=== PATIENT | male | born 1995 | race Two or more races ===

== ENCOUNTER 2017-06-07 13:09 | Emergency (ER) | payer OTHER ==
--- NOTE | 2017-06-07 13:43 | XRAY Preliminary Report ---
Exam: XR SHOULDER 3 VIEW RT IMPRESSION: 1. No acute osseous abnormalities. Normal alignment. [facility] SITE ID: [id number]
--- NOTE | 2017-06-07 13:45 | XRAY Report ---
EXAM: RIGHT SHOULDER RADIOGRAPHY EXAM DATE: 06/07/2017 01:38 PM. CLINICAL HISTORY: Fall. Right shoulder pain. COMPARISON: None. TECHNIQUE: 3 views. FINDINGS: Bones: Normal. No fracture or bone lesion. Joints: Normal alignment. No dislocation. Soft tissues: The visualized hemithorax is unremarkable. No soft tissue swelling. IMPRESSION: 1. No acute osseous abnormalities. Normal alignment. [facility] Referring Provider Line: [phone] SITE ID: [id number]
--- NOTE | 2017-06-07 14:26 | ED Physician Documentation ---
PD HPI UPPER EXT INJURY - Stated complaint Stated Complaint: R ARM INJ - Chief complaint Chief Complaint: Ext Problem - History obtained from History obtained from: Patient - History of Present Illness Location: Right, Shoulder, Arm Type of injury: Fall (from skateboard) Where injury occurred: Street Timing - onset: Yesterday Timing - details: Abrupt onset, Still present Worsened by: Moving (supination of forearm and also flexion at elbow.), Palpating Associated symptoms: No: Weakness, Numbness, Swelling Similar symptoms before: Has not had sx before Recently seen: Not recently seen Review of Systems Skin: denies: Abrasion (s), Laceration (s) Musculoskeletal: denies: Neck pain, Back pain Neurologic: denies: Focal weakness, Numbness, Headache, Head injury PD PAST MEDICAL HISTORY - Past Medical History Past Medical History: No - Past Surgical History Past Surgical History: No - Present Medications Home Medications: Ambulatory Orders Medication Instructions Recorded Confirmed Ibuprofen [Motrin] 600 mg PO TID #30 tab 06/07/17 - Allergies Allergies/Adverse Reactions: Allergies Allergy/AdvReac Type Severity Reaction Status Date / Time No Known Drug Allergies Allergy Verified 06/07/17 13:19 - Social History Does the pt smoke?: Yes Smoking Status: Current every day smoker Does the pt drink ETOH?: No Does the pt have substance abuse?: No - Immunizations Immunizations are current?: Yes PD ED PE NORMAL - Vitals Vital signs reviewed: Yes - General General: Alert and oriented X 3, No acute distress, Well developed/nourished - HEENT HEENT: Atraumatic - Neck Neck: Supple, no meningeal sign, No bony TTP - Back Back: No spinal TTP - Derm Derm: Normal color, Warm and dry - Extremities Extremities: No deformity, No tenderness to palpate, Other (right upper arm tender laterally about mid shaft in muscles. Has good movement at elbow against resistance with main pain being supination against resistance. Shoulder itself is not tender. ) Results - Vitals Vitals: Oxygen O2 Source Room air - Rads (name of study) shoulder Radiology: Prelim report reviewed (no fractures), EMP read contemporaneously PD MEDICAL DECISION MAKING - ED course Complexity details: considered differential (seems muscle strain of brachioradialis. Biceps and triceps seem okay. ), d/w patient Departure - Departure Disposition: 01 Home, Self Care Clinical Impression: Fall from skateboard, initial encounter Muscle strain, upper arm Qualifiers: Encounter type: initial encounter Laterality: right Qualified Code(s): S46.911A - Strain of unspecified muscle, fascia and tendon at shoulder and upper arm level, right arm, initial encounter Condition: Stable Record reviewed to determine appropriate education?: Yes Instructions: ED Strain Muscle Ext Follow-Up: KIM Shenshelia Paiz [Provider Group] Prescriptions: Ibuprofen [Motrin] 600 mg PO TID #30 tab Comments: Sling for the arm for the next 4-5 days. Gentle range of motion to it so does not get stiff. Ibuprofen 3 times a day. Add Tylenol if needed. Limited use of that arm for for 5 days. Follow-up with your primary care during that time. Forms: Activity restrictions Discharge Date/Time: 06/07/17 15:04
[2017-06-07] MEDS ORDERED: IBUPROFEN 600 MG TABLET PO STA (14:38)
[2017-06-07] MEDS ORDERED: ACETAMINOPHEN 325 MG TABLET PO STA (14:39)
[2017-06-07] MEDS ORDERED: ACETAMINOPHEN 325 MG TABLET PO ONE (14:49)
[2017-06-07] MEDS ORDERED: IBUPROFEN 600 MG TABLET PO ONE (14:49)
[2017-06-07 14:54] VITALS: BP 128/87
== END 2017-06-07 15:04 | disposition home or self-care (01) ==
LOC: ED 13:09
DX: S46.911A Strain of unspecified muscle, fascia and tendon at shoulder and upper arm level, right arm, initial encounter (principal); V00.131A Fall from skateboard, initial encounter; Y93.51 Activity, roller skating (inline) and skateboarding; Y92.830 Public park as the place of occurrence of the external cause; F17.200 Nicotine dependence, unspecified, uncomplicated
CPT/HCPCS: 73030; 99283; A9270

== ENCOUNTER 2018-07-06 15:08 | Emergency (ER) | payer OTHER ==
[2018-07-06 15:44] VITALS: BP 134/76
--- NOTE | 2018-07-06 15:51 | ED Physician Documentation ---
PD HPI LOWER EXT INJURY - Stated complaint Stated Complaint: RT ANKLE PX - Chief complaint Chief Complaint: Ext Problem - History obtained from History obtained from: Patient - History of Present Illness PD HPI LOW EXT INJURY LOCATION: Right, Ankle Type of injury: Twist Where injury occurred: Street Timing - onset: Last night Timing - duration: Hours Timing - details: Abrupt onset, Still present Improved by: Rest, Ice, Immobilization Worsened by: Moving, Palpating Associated symptoms: Swelling Contributing factors: No: Anticoagulated Similar symptoms before: Diagnosis (ankle sprain) Recently seen: Not recently seen - Additional information Additional information: 23-year-old who has rolled his right ankle previously was walking along the street last night when he rolled his ankle again. He has swelling and pain over the lateral aspect of his ankle and he is able to bear some weight. Review of Systems Constitutional: denies: Fever Eyes: denies: Decreased vision Ears: denies: Ear pain Nose: denies: Congestion Respiratory: denies: Cough GI: denies: Vomiting Musculoskeletal: reports: Joint pain, Joint swelling. denies: Neck pain, Back pain Neurologic: denies: Generalized weakness, Focal weakness, Numbness PD PAST MEDICAL HISTORY - Past Medical History Past Medical History: No - Past Surgical History Past Surgical History: No - Present Medications Home Medications: Ambulatory Orders Medication Instructions Recorded Confirmed Ibuprofen [Motrin] 600 mg PO TID #30 tab 06/07/17 07/06/18 - Allergies Allergies/Adverse Reactions: Allergies Allergy/AdvReac Type Severity Reaction Status Date / Time No Known Drug Allergies Allergy Verified 07/06/18 15:16 - Social History Does the pt smoke?: Yes Smoking Status: Former smoker Does the pt drink ETOH?: No Does the pt have substance abuse?: No - Immunizations Immunizations are current?: Yes - POLST Patient has POLST: No PD ED PE NORMAL - Vitals Vital signs reviewed: Yes (normal ) - General General: Alert and oriented X 3, No acute distress, Well developed/nourished - HEENT HEENT: Atraumatic, PERRL, EOMI - Respiratory Respiratory: No respiratory distress - Derm Derm: Normal color, Warm and dry, No rash - Extremities Extremities: No deformity, Other (There is swelling and point tenderness to the lateral malleolus and over the talo-fibular ligament. Distal n/v is intact. 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 Lateral soft tissue swelling. 2. The bones appear intact), EMP read indepedently, See rad report Procedures - Splint (location) right ankle Splint applied by: Tech Type of splint: Ankle airsplint Other: Patient tolerated well, No complications, Neurovascular intact, Good alignment PD MEDICAL DECISION MAKING - ED course Complexity details: reviewed results, re-evaluated patient, considered differential, d/w patient ED course: 23-year-old male with an ankle sprain to the right side is placed into an air stirrup and he is instructed to wear this 26/01 for 2 weeks. Departure - Departure Disposition: 01 Home, Self Care Clinical Impression: Ankle sprain Qualifiers: Encounter type: initial encounter Involved ligament of ankle: calcaneofibular ligament Laterality: right Qualified Code(s): S93.411A - Sprain of calcaneofibular ligament of right ankle, initial encounter Condition: Stable Instructions: ED Sprain Ankle W X Ray Follow-Up: CATARINO MARSHALL [Primary Care Provider] - Forms: Activity restrictions Discharge Date/Time: 07/06/18 16:14
--- NOTE | 2018-07-06 15:53 | XRAY Report ---
Reason: pain, swelling, bruising rt ankle Procedure Date: 07/06/2018 Accession Number: [id number] / [id number] Procedure: XR - Ankle 3 View RT CPT Code: FULL RESULT: EXAM: RIGHT ANKLE RADIOGRAPHY EXAM DATE: 07/06/2018 03:20 PM. CLINICAL HISTORY: Pain, swelling, bruising rt ankle. COMPARISON: None available. TECHNIQUE: 3 views. FINDINGS: Bones: Normal. No fractures or bone lesions. Joints: Normal. No effusion. No subluxations. The ankle mortise is normally aligned. Soft Tissues: There is lateral soft tissue swelling. IMPRESSION: 1. Lateral soft tissue swelling. 2. The bones appear intact. [facility]
== END 2018-07-06 16:14 | disposition home or self-care (01) ==
LOC: ED 15:08
DX: S93.411A Sprain of calcaneofibular ligament of right ankle, initial encounter (principal); X50.1XXA Overexertion from prolonged static or awkward postures, initial encounter; Y93.01 Activity, walking, marching and hiking; Y92.410 Unspecified street and highway as the place of occurrence of the external cause; Z87.891 Personal history of nicotine dependence
CPT/HCPCS: 99282; 99283